=== PATIENT | male | born 1980 | race Caucasian/White ===

== ENCOUNTER 2023-01-11 20:01 | Emergency (ER) | payer SELFPAY ==
--- OUTSIDE RECORDS SUMMARY | 2023-01-11 20:04 | XMS REPORT | Continuity of Care Document ---
:1980 Author Organization [facility] t Address [address] [place] [address] Care Team Providers Name Role Phone Trevor Perez Attending Clinician Unavailable Trevor Perez Attending Clinician Unavailable Trevor Perez Admitting Clinician Unavailable Payers Payer Name Policy Type Policy Number Effective Date Expiration Date S ource Problems This patient has no known problems. Allergies, Adverse Reactions, Alerts Allergy Allergy Status Severity Reaction(s) Onset Inactive Treating Comm ents Source Name Type Date Date Clinician No Known Drug Active [facility] Medications This patient has no known medications. Vital Signs Vital Name Observation Time Observation Value Comments Source Height/Length Measured 2021-02-26 08:27:19 182.9 cm Weight Dosing 2021-02-26 08:27:19 77.10 kg Height/Length Measured 2021-02-26 08:25:45 182.9 cm Weight Dosing 2021-02-26 08:25:45 77.10 kg Height/Length Measured 2021-02-26 08:25:37 182.9 cm Weight Dosing 2021-02-26 08:25:37 77.10 kg Height/Length Measured 2021-02-26 08:21:43 182.9 cm Weight Dosing 2021-02-26 08:21:43 77.10 kg Procedures This patient has no known procedures. Encounters Start End Encounter Admission Attending Care Care Encounter Source Date/Time Date/Time Type Type Clinicians Facility Department ID 2019-02-08 Inpatient 1 Trevor Perez [facility] [id number] 13:40:00 [facility] Results Test Description Test Time Test Comments Results Result Comments Source Urine Culture 2019-02-10 C Urine Added by No growth at 24 09:13:04 [id number]_IND hours. No growth at 48 hours. Lipid Panel 2019-02-09 08:30:26 Test Item Value Reference Range Interpretation Comme nts Cholesterol Total (test code = 208 mg/dL 0-200 H RISK OF HEART DISEASEPublished by Cholesterol Total) [place] [employer] Analyte Optimal Borderl ine Increased RiskCHOL <200 2 00-239 >240TRIG <150 150-199 >2 00HDL Male >60 <40HDL Female > 60 <50LDL <100 130-159 >160LDL Near optimal is 100-129 Triglycerides (test code = 122 mg/dL 9-200 Triglycerides) HDL (test code = HDL) 37 mg/dL 40-60 L LDL (test code = LDL) 147 mg/dL 0-130 H The eq uation being used in this calculation is LDL = (Chol - HDL) - (Trig / 5) VLDL (test code = VLDL) 24 mg/dL 5-40 The equation being used in this calculation is VLDL = Trig / 5 Chol/HDL (test code = Chol/HDL) 5.6 ratio 0.0-5.0 H LDL/HDL Ratio (test code = 4 N T he equation being used in this LDL/HDL Ratio) calculation i s LDL/HDL Ratio=LDL Calc/HDL Chol Thyroid Stimulating [id number] 08:30:26 Test Item Value Reference Range Interpretation Comments TSH (test code = TSH) 0.391 mIU/mL 0.270-4.200 RPR [id number] 06:16:32 Test Item Value Reference Range Interpretation Comments RPR Qual (test code = RPR Qual) Non-Reactive Non-Reactive Reactive Control (test code = Reactive Reactive Control) Weak Reactive Control (test Weak Reactive code = Weak Reactive Control) Non-Reactive Control (test code Non-Reactive = Non-Reactive Control) Lot # (test code = Lot #) [id number] Expiration Dt (test code = 12-10-2019 N Expiration Dt) Urinalysis [id number] 15:02:55 Test Item Value Reference Range Interpretation Comments UA WBC (test code = UA WBC) 11-19 0-5 A UA RBC (test code = UA RBC) TNTC 0-5 A UA Bacteria (test code = UA None Seen Bacteria) UA Squam Epithelial (test code = UA 11-19 A Squam Epithelial) UA Trans Epithelial (test code = UA 1-4 A Trans Epithelial) UA Mucous (test code = UA Mucous) Moderate A Urinalysis with Culture, if [id number] 15:02:55 Test Item Value Reference Range Interpretation Comments UA Color (test code = PIETER Yellow A UA Color) UA Appear (test code = SCLD Clear A UA Appear) UA pH (test code = UA 7 N pH) UA Spec Grav (test 1.021 1.001-1.035 code = UA Spec Grav) UA Glucose (test code NEG Negative = UA Glucose) UA Bili (test code = 1 mg/dL Negative A UA Bili) UA Ketones (test code NEG Negative = UA Ketones) UA Blood (test code = 250 cells/mcL Negative A UA Blood) UA Protein (test code 25 mg/dL Negative A = UA Protein) UA Urobilinogen (test 4 mg/dL >0.2 A code = UA Urobilinogen) UA Nitrite (test code NEG Negative = UA Nitrite) UA Leuk Est (test code 25 cells/mcL Negative A = UA Leuk Est) UA Micro Ind? (test Indicated Not Indicated A Result created by code = UA Micro Ind?) rule GL_SJM_UA_MICRO _IN D Urine Drug [id number] 14:59:23 Test Item Value Reference Range Interpretation Comments Amphetamine Screen Ur Negative Negative (test code = Amphetamine Screen Ur) Barbiturate Screen Ur Negative Negative (test code = Barbiturate Screen Ur) Benzodiazepines Ur (test Negative Negative code = Benzodiazepines Ur) Cocaine Screen Ur (test Negative Negative code = Cocaine Screen Ur) U Methadone Scr (test Negative Negative code = U Methadone Scr) Opiate Screen Ur (test Negative Negative code = Opiate Screen Ur) U PCP Scrn (test code = Negative Negative U PCP Scrn) Cannabinoid Screen Ur POSITIVE Negative A (test code = Cannabinoid Screen Ur) U TCA (test code = U Negative Negative The res ults of all TCA) drug screen kamryn ts are only preliminar y. Clinical consideration a nd professional ju dgment should be appli ed to any drug of abu se test result, particularly wh en preliminary pos itive results are obt ained. Please order a separate confir matory test if desired . IG [id number] 14:50:30 Test Item Value Reference Range Interpretation Comments IG (test code = IG) 0.1 % 0.0-5.0 IG Abs (test code = IG Abs) 0 x10 N Complete Blood Count with [id number] 14:50:29 Test Item Value Reference Range Interpretation Comments WBC (test code = WBC) 7.8 x10 4.4-10.5 RBC (test code = RBC) 4.79 x10 4.10-5.70 Hgb (test code = Hgb) 15.3 g/dL 13.4-17.4 Hct (test code = Hct) 45.6 % 38.7-52.0 MCV (test code = MCV) 95.20 fL 80.00-100.00 MCHC (test code = 33.60 g/dL 32.00-37.50 MCHC) MCH (test code = MCH) 31.9 pg 27.0-32.5 RDW CV (test code = 12.3 % 11.5-14.5 RDW CV) Platelets (test code = 314.0 x10 140.0-440.0 Platelets) MPV (test code = MPV) 10.0 fL N Slide Review (test Auto Auto Result cr eated by code = Slide Review) GL_SJM_ SLIDE_REV_AUTO nRBC (test code = 0 N nRBC) NRBC Abs (test code = 0.00 x10 N NRBC Abs) IPF (test code = IPF) 0 % N Comprehensive Metabolic [id number] 14:50:29 Test Item Value Reference Range Interpretation Comments eGFR AA (test >60 mL/min/1.73 N eGFR (estim ated code = eGFR AA) m2 Glomerular F iltration Rate) is an est imated value, calculat ed from the patient's s juwan creatinine usin g the MDRD equation. It is NOT the patient 's actual GFR. The eGFR provides a more clinically usef ul measure of kidn ey disease than se rum creatinine alone.This calculation janessa es sex and race into a ccount, if the informat ion is provided. If th e race is not provided , and the patient is -Diane n, multiply by 1.2 12. If sex is not prov ided, and the patient is female, multipl y by 0.742. Results for patients <18 ye ars of age have not be en validated by th e MDRD study and anika d be interpreted wit h caution. eGFR R esult Interpretation: eGFR > or = 60 is in t he Normal RangeeGF R < 60 may mean kidney diseaseeGFR < 1 5 may mean kidney malik lure Ranges recommen ded by the National dney Foundation, http://nkdep. h.gov Comprehensive Metabolic [id number] 14:50:29 Test Item Value Reference Range Interpretation Comments Sodium Level (test 144.0 mmol/L 135.0-145.0 code = Sodium Level) Potassium Level 4.3 mmol/L 3.5-5.1 (test code = Potassium Level) Chloride Level (test 102 mmol/L 98-105 code = Chloride Level) CO2 (test code = 30 mmol/L 22-29 H CO2) Anion Gap (test code 12 mmol/L 7-16 = Anion Gap) BUN (test code = 11.60 mg/dL 6.00-20.00 BUN) Creatinine Level 0.90 mg/dL 0.70-1.20 (test code = Creatinine Level) BUN/Creat Ratio 13 N (test code = BUN/Creat Ratio) Glucose Level (test 99 mg/dL 70-115 code = Glucose Level) Calcium Level (test 9.6 mg/dL 8.3-10.5 code = Calcium Level) Alk Phos (test code 72 U/L 40-129 = Alk Phos) Bilirubin Total 0.3 mg/dL 0.1-0.9 (test code = Bilirubin Total) Albumin Level (test 4.7 g/dL 3.5-5.2 code = Albumin Level) Protein Total (test 7.0 g/dL 6.4-8.3 code = Protein Total) ALT (test code = 9 U/L 1-41 ALT) AST (test code = 14 U/L 1-40 AST) Globulin (test code 2.3 g/dL 2.9-3.1 L = Globulin) A/G Ratio (test code 2.0 ratio N = A/G Ratio) eGFR AA (test code = >60 N eGFR (e stimated eGFR AA) mL/min/1.73 m2 Glomerular Filtration Rate ) is an estimated va lue, calculated from the patient's serum creatinine usin g the MDRD equation. It is NOT the patient 's actual GFR. The eGFR provides a more clinically usef ul measure of kidn ey disease than se rum creatinine alone.This calculation janessa es sex and race in to account, if the information is provided. If th e race is not provided, and t he patient is -Diane n, multiply by 1.2 12. If sex is not provided, and t he patient is fema le, multiply by 0.7 42. Results for pat ients <18 years of ag e have not been validated by th e MDRD study and should be interpreted wit h caution. eGFR R esult Interpretation: eGFR > or = 60 is in the Normal RangeeGF R < 60 may mean kid tod diseaseeGFR < 1 5 may mean kidney failure Rang es recommended by the National Kidney Foundation, http://nkdep.ni h.gov Comprehensive Metabolic [id number] 14:50:29 Test Item Value Reference Range Interpretation Comments Sodium Level (test 144.0 mmol/L 135.0-145.0 code = Sodium Level) Potassium Level 4.3 mmol/L 3.5-5.1 (test code = Potassium Level) Chloride Level (test 102 mmol/L 98-105 code = Chloride Level) CO2 (test code = 30 mmol/L 22-29 H CO2) Anion Gap (test code 12 mmol/L 7-16 = Anion Gap) BUN (test code = 11.60 mg/dL 6.00-20.00 BUN) Creatinine Level 0.90 mg/dL 0.70-1.20 (test code = Creatinine Level) BUN/Creat Ratio 13 N (test code = BUN/Creat Ratio) Glucose Level (test 99 mg/dL 70-115 code = Glucose Level) Calcium Level (test 9.6 mg/dL 8.3-10.5 code = Calcium Level) Alk Phos (test code 72 U/L 40-129 = Alk Phos) Bilirubin Total 0.3 mg/dL 0.1-0.9 (test code = Bilirubin Total) Albumin Level (test 4.7 g/dL 3.5-5.2 code = Albumin Level) Protein Total (test 7.0 g/dL 6.4-8.3 code = Protein Total) ALT (test code = 9 U/L 1-41 ALT) AST (test code = 14 U/L 1-40 AST) Globulin (test code 2.3 g/dL 2.9-3.1 L = Globulin) A/G Ratio (test code 2.0 ratio N = A/G Ratio) eGFR AA (test code = >60 N eGFR (e stimated eGFR AA) mL/min/1.73 m2 Glomerular Filtration Rate ) is an estimated va lue, calculated from the patient's serum creatinine usin g the MDRD equation. It is NOT the patient 's actual GFR. The eGFR provides a more clinically usef ul measure of kidn ey disease than se rum creatinine alone.This calculation janessa es sex and race in to account, if the information is provided. If th e race is not provided, and t he patient is -Diane n, multiply by 1.2 12. If sex is not provided, and t he patient is fema le, multiply by 0.7 42. Results for pat ients <18 years of ag e have not been validated by [facility] MDRD study and should be interpreted wit h caution. eGFR R esult Interpretation: eGFR > or = 60 is in the Normal RangeeGF R < 60 may mean kid tod diseaseeGFR < 1 5 may mean kidney failure Rang es recommended by the National Kidney Foundation, http://nkdep.ni h.gov eGFR Non-AA (test >60.00 N eGFR (krystal mated code = eGFR Non-AA) mL/min/1.73 m2 Glomer ular Filtration Rate ) is an estimated va lue, calculated from the patient's serum creatinine usin g the MDRD equation. It is NOT the patient 's actual GFR. The eGFR provides a more clinically usef ul measure of kidn ey disease than se rum creatinine alone.This calculation janessa es sex and race in to account, if the information is provided. If th e race is not provided, and t he patient is -Diane n, multiply by 1.2 12. If sex is not provided, and t he patient is fema le, multiply by 0.7 42. Results for pat ients <18 years of ag e have not been validated by [facility] MDRD study and should be interpreted wit h caution. eGFR R esult Interpretation: eGFR > or = 60 is in the Normal RangeeGF R < 60 may mean kid tod diseaseeGFR < 1 5 may mean kidney failure Rang es recommended by the National Kidney Foundation, http://nkdep.ni h.gov Automated [id number] 14:50:29 Test Item Value Reference Range Interpretation Comments Neutro Auto (test code = Neutro 67.8 % 36.0-70.0 Auto) Lymph Auto (test code = Lymph Auto) 25.3 % 12.0-44.0 [place] Auto (test code = [place] Auto) 4.5 % 0.0-11.0 Eos, Auto (test code = Eos, Auto) 1.5 % 0.0-7.0 Basophil Auto (test code = Basophil 0.8 % 0.0-2.0 Auto) Neutro Absolute (test code = Neutro 5.3 x10 1.6-7.4 Absolute) Lymph Absolute (test code = Lymph 1.97 x10 .50-4.60 Absolute) [place] Absolute (test code = [place] .35 x10 .00-1.20 Absolute) Eos Absolute (test code = Eos 0.12 x10 0.00-0.74 Absolute) Baso Absolute (test code = Baso 0.06 x10 0.00-0.21 Absolute) Alcohol [id number] 14:50:29 Test Item Value Reference Range Interpretation Comments Ethanol Level (test <0.00 g/dL 0.00-0.01 Intoxica rosa elena 0.080 g/dL code = Ethanol or more Level) Ethanol Inst (test <0 N code = Ethanol Inst)
[2023-01-11] MEDS ORDERED: TDAP (DIPHTH,PERTUSS(ACELL),TET VAC) 0.5 ML VIAL IMVAC ONE (20:59)
[2023-01-11] MEDS ORDERED: NA CHLORIDE 0.9% 1,000 ML ONE ×2 (20:59→21:08)
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
[2023-01-11 21:10] LABS: Absolute Lymphocytes (CBC) 3.1 K/uL (0.7-4.9); Hematocrit 44.1 % (39.6-49.0); Lymphocytes % 26.5 % (15.3-44.8); MCV 95.1 fL (80-100); MPV 8.7 fL (7.6-11.3); Platelets 320 thou/uL (152-406); RBC Red Blood Cell Count 4.63 M/uL (4.33-5.43)
[2023-01-11 21:15] LABS: Protime INR 0.98
[2023-01-11 21:22] LABS: Potassium 3.3 mEq/L (3.5-5.1)
[2023-01-11] MEDS ORDERED: LIDOCAINE 1% 20 ML MDV ONE (21:49)
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
[2023-01-11 22:17] LABS: Hepatitis B Core IgM Nonreactive (Nonreactive); Hepatitis B surface AG Interp. Nonreactive (Nonreactive); Hepatitis C Virus Ab Nonreactive (Nonreactive)
[2023-01-12 00:45] VITALS: TEMP 98.4
[2023-01-12 00:50] VITALS: BP 164/84; O2SAT 97
== END 2023-01-11 23:01 | disposition short-term general hospital (02) ==
LOC: ER 20:01
PROC: 0HQ6XZZ Repair Back Skin, External Approach (ICD-10-PCS; principal; 2023-01-11)
PROC: 0HQCXZZ Repair Left Upper Arm Skin, External Approach (ICD-10-PCS; 2023-01-11)
PROC: 0HQBXZZ Repair Right Upper Arm Skin, External Approach (ICD-10-PCS; 2023-01-11)
DX: S27.0XXA Traumatic pneumothorax, initial encounter (principal); S41.112A Laceration without foreign body of left upper arm, initial encounter; S41.111A Laceration without foreign body of right upper arm, initial encounter; S31.010A Laceration without foreign body of lower back and pelvis without penetration into retroperitoneum, initial encounter; S21.212A Laceration without foreign body of left back wall of thorax without penetration into thoracic cavity, initial encounter; S21.211A Laceration without foreign body of right back wall of thorax without penetration into thoracic cavity, initial encounter
CPT/HCPCS: 36415; 70450; 71260; 72125; 74177; 80048; 80074; 82565; 85025; 85610; 85730; 96360; 96361; 96372; 99285; J2001; J7030; Q9967

== ENCOUNTER 2024-01-08 04:23 | Emergency (ER) | payer SELFPAY ==
[2024-01-08 04:55] LABS: Absolute Basophils 0.1 K/uL (0-0.5); Absolute Eosinophils 0.2 K/uL (0-0.5); Absolute Monocytes 0.6 K/uL (0.1-1.3); Absolute Neutrophil 7.3 K/uL (1.8-8.0); Hematocrit 40.8 % (39.6-49.0); Hemoglobin 14.2 g/dL (13.6-17.9); Lymphocytes % 19.5 % (15.3-44.8); MCH 32.6 pg (27.0-35.0); MCHC 34.7 g/dL (32.0-36.0); MCV 93.8 fL (80-100); MPV 7.6 fL (7.6-11.3); Monocytes % 6.2 % (3.3-12.3); Neutrophils % 71.3 % (41.7-73.7); Platelets 307 thou/uL (152-406); RBC Red Blood Cell Count 4.34 M/uL (4.33-5.43); Red Cell Distribution Width 13.4 % (12.1-15.2)
--- NOTE | 2024-01-08 04:57 | ER ---
Nurse's Notes [facility] Name: Florencio Harvey Age: 43 yrs Sex: Male : 1980 Arrival Date: 01/08/2024 Time: 04:23 Bed 5 Private MD: Diagnosis: Lower abdominal pain, unspecified Presentation: 01/07 04:30 Chief complaint: Patient states: RIGHT LOWER QUADRANT PAIN. ha1 04:30 Coronavirus screen: Vaccine status: Patient reports being unvaccinated. Ebola Screen: ha1 No symptoms or risks identified at this time. Initial Sepsis Screen: Does the patient meet any 2 criteria? No. Patient's initial sepsis screen is negative. Does the patient have a suspected source of infection? No. Patient's initial sepsis screen is negative. Risk Assessment: Do you want to hurt yourself or someone else? Patient reports no desire to harm self or others. Onset of symptoms was January 08, 2024. 04:30 Method Of Arrival: Ambulatory 1 04:30 Acuity: BRI 3 ha1 Triage Assessment: 04:30 General: Appears uncomfortable, Behavior is agitated, anxious, uncooperative. Pain: ha1 Complains of pain in right lower quadrant Pain does not radiate. Pain currently is 10 out of 10 on a pain scale. Quality of pain is described as throbbing. Neuro: Level of Consciousness is awake, alert, obeys commands, Oriented to person, place, time, situation. Cardiovascular: Patient's skin is warm and dry. Respiratory: Airway is patent Respiratory effort is even, unlabored, Respiratory pattern is regular, symmetrical. GI: Abdomen is flat, non-distended, Abd is soft X 4 quads Reports lower abdominal pain. : No signs and/or symptoms were reported regarding the genitourinary system. Derm: Skin is normal. Musculoskeletal: Circulation, motion, and sensation intact. Range of motion: intact in all extremities. Historical: - Allergies: 04:30 Pollen; ha1 - PMHx: 04:30 Inguinal hernia; ha1 - PSHx: 04:30 PUNCTURE OF LUNG; ha1 - Immunization history:: Adult Immunizations not up to date. - Infectious Disease History:: Denies. - Social history:: Smoking status: unknown. - Family history:: not pertinent. Screenin:30 Abuse screen: Denies threats or abuse. Denies injuries from another. ha1 04:30 [facility] ED Fall Risk Assessment (Adult) History of falling in the last 3 months, ha1 including since admission No falls in past 3 months (0 pts) Confusion or Disorientation No (0 pts) Intoxicated or Sedated Yes (3 pts) Impaired Gait No (0 pts) Mobility Assist Device Used No (0 pt) Altered Elimination Yes (1 pt) Score/Fall Risk Level 3 or more points = High Risk Oriented to surroundings, Maintained a safe environment, Educated pt \\T\\ family on fall prevention, incl call for assistance when getting out of bed, Hourly rounding (assess needs \\T\\ fall precautionary measures) done. Nutritional screening: No deficits noted. Tuberculosis screening: No symptoms or risk factors identified. Assessment: 05:00 Reassessment: PATIENT WALKING IN AND OUT OF ROOM, WALKING IN THE HALLWAY. PROVIDED ha1 EDUCATION NEED TO STAY IN THE ROOM TO CONTINUE WITH THE PLAN OF CARE. PATIENT STATES "I DON'T CARE I AM LEAVING, I NOT GOING TO STAY INSIDE THE ROOM, I NEED TO WALK." DR. HENDRIX EXPLAINED THE NEED TO CONTINUE WITH THE PLAN OF CARE. Vital Signs: 04:30 BP 151 / 110; Pulse 87; Resp 17 S; Temp 97.2(T); Pulse Ox 100% on R/A; Weight 79.38 kg; ha1 Height 6 ft. 0 in. ; Pain 10/10; 04:30 Body Mass Index 23.73 (79.38 kg, 182.88 cm) ha1 04:30 Pain Scale: Adult ha1 [place] Coma Score: 01/08 03:49 Eye Response: spontaneous(4). Motor Response: obeys commands(6). Verbal Response: sp4 oriented(5). Total: 15. ED Course: 01/07 04:25 Patient arrived in ED. gm2 04:26 Joe Hendrix MD is Attending Physician. sp4 04:30 Patient has correct armband on for positive identification. Bed in low position. Call ha1 light in reach. Side rails up X 1. Provided Education on: PLAN OF CARE . 04:30 Arm band placed on right wrist. ha1 04:48 CBC with Diff Sent. af3 04:48 CMP Sent. af3 04:48 Lipase Sent. af3 04:48 Inserted saline lock: 20 gauge in left antecubital area, using aseptic technique. Blood af3 collected. Flushed with 10 mL NS. 05:00 No provider procedures requiring assistance completed. ha1 05:05 IV discontinued, intact, bleeding controlled, No redness/swelling at site. Pressure ha1 dressing applied. 05:09 Triage completed. ha1 Administered Medications: 05:06 Not Given (Physician Discretion): ns 0.9% 1000 ml IV at 1 bolus Per protocol; to be ha1 given as a bolus over 60 minutes 05:06 Not Given (Physician Discretion): ativan2 mg IVP once ha1 05:06 Not Given (Physician Discretion): morphineor iv 4 mg IVP once over 4 mins ha1 05:06 Not Given (Physician Discretion): ondansetron 4 mg IVP once; over 2 minutes ha1 05:06 Not Given (Physician Discretion): ns 0.9% 1000 ml IV at 125 ml/hr continuous ha1 05:06 Not Given (Physician Discretion): [id number] mg IVP once ha1 Medication: 05:10 VIS not applicable for this client. ha1 Outcome: 04:56 Discharge ordered by . zuleyma 05:10 Condition: stable ha1 05:10 Discharged to home ha1 05:10 Discharge instructions given to patient, Instructed on discharge instructions, follow up and referral plans. Demonstrated understanding of instructions, follow-up care, 05:16 Patient left the ED. ha1 Signatures: Zaira Fraser RN RN ha1 Joe Hendrix MD MD sp4 Britt Rothman gm2 Shelby Franco af3 Corrections: (The following items were deleted from the chart) 05:21 04:30 BP 151 / 110; Pulse 87bpm; Resp 17bpm; Spontaneous; Pulse Ox 100% RA; Temp 87F ha1 Tympanic; 79.38 kg; Height 6 ft.; BMI: 23.7; Pain 10/, Adult; ha1
--- NOTE | 2024-01-08 04:57 | EDPHYS ---
Physician Documentation [facility] Name: Florencio Harvey Age: 43 yrs Sex: Male : 1980 Arrival Date: 01/08/2024 Time: 04:23 Bed 5 Private MD: ED Physician Joe Hendrix HPI: 01/07 04:26 This 43 yrs old Male presents to ER via Unassigned with complaints of sp4 Abdominal Pain, RIGHT SIDE PAIN/ PAIN IS INCREASING. 01/08 03:49 43-year-old male presents with complaint of right lower abdominal pain.. On arrival sp4 patient is visibly agitated and is uncooperative, patient proceeded to arrive around the emergency room stating that his pain is better when he walks about. Patient would not cooperate from examination and full history collection is not possible. Historical: - Allergies: 01/07 04:30 Pollen; ha1 - PMHx: 04:30 Inguinal hernia; ha1 - PSHx: 04:30 PUNCTURE OF LUNG; ha1 - Immunization history:: Adult Immunizations not up to date. - Infectious Disease History:: Denies. - Social history:: Smoking status: unknown. - Family history:: not pertinent. ROS: 01/08 03:49 Constitutional: Negative for fever, chills, and weight loss, positive for right lower sp4 quadrant abdominal pain All other systems are negative, Exam: 03:49 Constitutional: This is a well developed, well nourished patient who is awake, alert, sp4 irritable, agitated, emotionally upset, restless Head/Face: Normocephalic, atraumatic. Eyes: Pupils equal round and reactive to light, extra-ocular motions intact. Lids and lashes normal. Conjunctiva and sclera are not injected. Cornea within normal limits. Periorbital areas with no swelling, redness, or edema. ENT: Nares patent. No nasal discharge, no septal abnormalities noted. Tympanic membranes are normal and external auditory canals are clear. Oropharynx with no redness, swelling, or masses, exudates, or evidence of obstruction, uvula midline. Mucous membranes moist. Neck: Trachea midline, no thyromegaly or masses palpated, and no cervical lymphadenopathy. Supple, full range of motion without nuchal rigidity, or vertebral point tenderness. Chest/axilla: Normal chest wall appearance and motion. Nontender with no deformity. No lesions are appreciated. Cardiovascular: Regular rate and rhythm with a normal S1 and S2. No gallops, murmurs, or rubs. Normal PMI, no JVD. No pulse deficits. Respiratory: Lungs have equal breath sounds bilaterally, clear to auscultation and percussion. No rales, rhonchi or wheezes noted. No increased work of breathing, no retractions or nasal flaring. Abdomen/GI: Soft, with normal bowel sounds. No distension or tympany. No guarding or rebound. Positive for right lower quadrant abdominal tenderness without rebound Back: No spinal tenderness. No costovertebral tenderness. Male : Normal genitalia with no discharge or lesions. Skin: Warm, dry with normal turgor. Normal color with no rashes, no lesions, and no evidence of cellulitis. MS/ Extremity: Pulses equal, no cyanosis. Neurovascular intact. Full, normal range of motion. Neuro: Awake and alert, GCS 15, oriented to person, place, time, and situation. Cranial nerves II-XII grossly intact. Motor strength 5/5 in all extremities. Sensory grossly intact. Psych: Awake, alert, with orientation to person, place , patient has psychomotor agitation indicative of stimulant intoxication, also emotional upset Vital Signs: 01/07 04:30 BP 151 / 110; Pulse 87; Resp 17 S; Temp 97.2(T); Pulse Ox 100% on R/A; Weight 79.38 kg; ha1 Height 6 ft. 0 in. ; Pain 10/10; 04:30 Body Mass Index 23.73 (79.38 kg, 182.88 cm) [facility] 04:30 Pain Scale: Adult ha1 [place] Coma Score: 01/08 03:49 Eye Response: spontaneous(4). Motor Response: obeys commands(6). Verbal Response: sp4 oriented(5). Total: 15. MDM: 01/07 04:27 Medical Screening Exam initiated sp4 01/08 03:51 Differential Diagnosis altered mental status, sepsis, flu, Abdominal pain, stimulant sp4 intoxication. Data reviewed: vital signs, nurses notes, old medical records. ED course: Patient was advised to stay in his room. Patient proceeded to run around the emergency department and acted in ways that were irrational. We suspect acute methamphetamine intoxication. Patient was advised to return back in the room # 5 and cooperate with medical assessment. Patient then requested removal of his IV and then proceeded to request discharge. Patient was provided with informed discharge from the emergency room. Patient then left the emergency room. . 01/07 04:27 Order name: CBC with Diff; Complete Time: 06:08 sp4 01/07 04:27 Order name: CMP; Complete Time: 06:08 sp4 01/07 04:27 Order name: Lipase; Complete Time: 06:08 sp4 01/07 04:27 Order name: IV Saline Lock; Complete Time: 04:48 sp4 01/07 04:27 Order name: Labs collected and sent; Complete Time: 04:48 sp4 Administered Medications: 01/07 05:06 Not Given (Physician Discretion): ns 0.9% 1000 ml IV at 1 bolus Per protocol; to be ha1 given as a bolus over 60 minutes 05:06 Not Given (Physician Discretion): ativan2 mg IVP once ha1 05:06 Not Given (Physician Discretion): morphineor iv 4 mg IVP once over 4 mins ha1 05:06 Not Given (Physician Discretion): ondansetron 4 mg IVP once; over 2 minutes ha1 05:06 Not Given (Physician Discretion): ns 0.9% 1000 ml IV at 125 ml/hr continuous ha1 05:06 Not Given (Physician Discretion): [id number] mg IVP once ha1 Disposition: 01/08 03:53 Chart complete. sp4 Disposition Summary: 01/08/24 04:56 Discharge Ordered Notes: Location: Home sp4 Problem: new sp4 Symptoms: have improved sp4 Condition: Stable sp4 Diagnosis - Lower abdominal pain, unspecified sp4 Followup: sp4 - With: Private Physician - When: As needed - Reason: Recheck today's complaints Discharge Instructions: - Discharge Summary Sheet sp4 - Abdominal Pain, Adult, [id number] sp4 Forms: - Patient Portal Instructions sp4 Signatures: Dispatcher [employer] Zaira Bah RN RN ha1 Joe Hendrix MD MD sp4 Corrections: (The following items were deleted from the chart) 01/07 04:47 04:47 URINE DRUG SCREEN+UC.LAB.BRZ ordered. [facility] EDN[facility] 05:04 04:39 Abdomen Pelvis W Con+CT.RAD.BRZ ordered. EDMS EDMS
[2024-01-08 05:11] LABS: Albumin 3.4 g/dL (3.4-5.0); Albumin/Globulin Ratio 1.1 (1.1-1.8); Anion Gap 9.2 mEq/L (5.0-15.0); Bilirubin Total 0.2 mg/dL (0.2-1.0); Globulin 3.1 g/dL (2.3-3.5); Potassium 4.2 mEq/L (3.5-5.1); Protein, Total 6.5 g/dL (6.4-8.2)
[2024-01-08 05:26] VITALS: BP 151/110; TEMP 87; O2SAT 100
== END 2024-01-08 05:16 | disposition home or self-care (01) ==
LOC: ER 04:23
DX: R10.31 Right lower quadrant pain (principal)
CPT/HCPCS: 36415; 80053; 83690; 85025; 99284